=== PATIENT | female | born 1985 | race Hispanic/Latino ===

== ENCOUNTER 2023-09-07 02:20 | Emergency (ER) | payer OTHER, SELFPAY ==
[2023-09-07] MEDS ORDERED: METOCLOPRAMIDE 10 MG/2mL INJ ONE (03:16)
[2023-09-07] MEDS ORDERED: DIPHENHYDRAMINE 50 MG/ML VIAL ONE (03:16)
[2023-09-07] MEDS ORDERED: KETOROLAC 30 MG/ML INJ ONE (03:16)
[2023-09-07] MEDS ORDERED: NA CHLORIDE 0.9% 1,000 ML ONE (03:17)
[2023-09-07 03:40] LABS: Absolute Basophils 0.1 K/uL (0-0.5); Absolute Eosinophils 0.3 K/uL (0-0.5); Absolute Lymphocytes (CBC) 2.9 K/uL (0.7-4.9); Absolute Monocytes 0.5 K/uL (0.1-1.3); Absolute Neutrophil 6.2 K/uL (1.8-8.0); Basophils % 0.7 % (0-1.3); Eosinophils % 2.7 % (0-4.4); Hematocrit 36.8 % (36.0-45.0); Hemoglobin 12.5 g/dL (12.0-15.0); Lymphocytes % 29.2 % (15.3-44.8); MCH 29.8 pg (27.0-35.0); MCHC 33.9 g/dL (32.0-36.0); MCV 87.7 fL (80-100); MPV 9.3 fL (7.6-11.3); Monocytes % 5.1 % (3.3-12.3); Neutrophils % 62.3 % (41.7-73.7); Nucleated Red Blood Cells % 0.1 % (0-0); Platelets 213 thou/uL (152-406); Red Cell Distribution Width 12.8 % (12.1-15.2)
[2023-09-07 03:58] LABS: Anion Gap 3.5 mEq/L (5.0-15.0); Potassium 3.5 mEq/L (3.5-5.1)
--- NOTE | 2023-09-07 04:58 | EDPHYS ---
Physician Documentation [facility] Name: Samantha Silverio Age: 38 yrs Sex: Female : 1985 Arrival Date: 09/07/2023 Time: 02:20 Bed 19 Private MD: ED Physician Heber Arreaga HPI: 09/06 03:03 This 38 yrs old Female presents to ER via Ambulatory with complaints of sp4 Headache, Dizziness, Weakness. 04:58 38-year-old female presents with acute onset left-sided headache starting 1 hour prior sp4 to arrival. . Historical: - Allergies: 02:37 No Known Allergies; jb4 - PMHx: 02:37 Asthma; HYPOGLYCEMIA; jb4 - PSHx: 02:37 Cholecystectomy; jb4 - Immunization history:: Adult Immunizations up to date. - Infectious Disease History:: Denies. - Social history:: Smoking status: Patient denies any tobacco usage or history of. - Family history:: not pertinent. ROS: 04:58 Constitutional: Negative for fever, chills, and weight loss, positive for headache sp4 04:58 Constitutional: Positive for dizziness and weakness sp4 04:58 All other systems are negative, Exam: 04:43 Constitutional: This is a well developed, well nourished patient who is awake, alert, sp4 and in no acute distress. Head/Face: Normocephalic, atraumatic. Eyes: Pupils equal round and reactive to light, extra-ocular motions intact. Lids and lashes normal. Conjunctiva and sclera are not injected. Cornea within normal limits. Periorbital areas with no swelling, redness, or edema. ENT: Nares patent. No nasal discharge, no septal abnormalities noted. Tympanic membranes are normal and external auditory canals are clear. Oropharynx with no redness, swelling, or masses, exudates, or evidence of obstruction, uvula midline. Mucous membranes moist. Neck: Trachea midline, no thyromegaly or masses palpated, and no cervical lymphadenopathy. Supple, full range of motion without nuchal rigidity, or vertebral point tenderness. Chest/axilla: Normal chest wall appearance and motion. Nontender with no deformity. No lesions are appreciated. Cardiovascular: Regular rate and rhythm with a normal S1 and S2. No gallops, murmurs, or rubs. Normal PMI, no JVD. No pulse deficits. Respiratory: Lungs have equal breath sounds bilaterally, clear to auscultation and percussion. No rales, rhonchi or wheezes noted. No increased work of breathing, no retractions or nasal flaring. Abdomen/GI: Soft, with normal bowel sounds. No distension or tympany. No guarding or rebound. No evidence of tenderness throughout. Back: No spinal tenderness. No costovertebral tenderness. Skin: Warm, dry with normal turgor. Normal color with no rashes, no lesions, and no evidence of cellulitis. MS/ Extremity: Pulses equal, no cyanosis. Neurovascular intact. Full, normal range of motion. Neuro: Awake and alert, GCS 15, oriented to person, place, time, and situation. Cranial nerves II-XII grossly intact. Motor strength 5/5 in all extremities. Sensory grossly intact. Psych: Awake, alert, with orientation to person, place and time. Behavior, mood, and affect are within normal limits Vital Signs: 02:43 BP 139 / 88; Pulse 90; Resp 18; Temp 98.2(O); Pulse Ox 96% on R/A; Weight 131.54 kg; oe Height 5 ft. 4 in. ; Pain 8/10; 03:42 BP 134 / 73; Pulse 88; Resp 16 S; Pulse Ox 97% on R/A; ha1 04:30 BP 130 / 72; Pulse 85; Resp 16; Temp 97.8; Pulse Ox 99% on R/A; Pain 0/10; pf1 02:43 Body Mass Index 49.78 (131.54 kg, 162.56 cm) oe 02:43 Pain Scale: Adult oe 04:30 Pain Scale: Adult pf1 NIH Stroke Scale Scores: 04:43 NIHSS Score: 0 sp4 Peter Coma Score: 04:43 Eye Response: spontaneous(4). Motor Response: obeys commands(6). Verbal Response: sp4 oriented(5). Total: 15. MDM: 03:04 Patient medically screened. sp4 04:35 ED course: CLINICAL HISTORY: acute headache COMPARISON: None. TECHNIQUE: CT HEAD sp4 WITHOUT IV CONTRAST on 09/07/2023 3:04 AM CDT This exam was performed according to our departmental dose-optimization program, which includes automated exposure control, adjustment of the mA and/or kV according to patient size and/or use of iterative reconstruction technique. FINDINGS: There is no acute hemorrhage, mass effect or midline shift. Stewart-white differentiation is preserved. There is no hydrocephalus. There is no significant volume loss for age. The calvarium is intact. Orbits and globes are unremarkable. There is mild thickening of the left maxillary sinus. Mastoid air cells are clear. IMPRESSION: No acute intracranial findings.. 04:43 Differential diagnosis: cluster headache, cerebral vascular accident, migraine, sp4 neoplasm, vasomotor headache. Data reviewed: vital signs, nurses notes, lab test result(s), radiologic studies, CT scan. ED course: CT negative. Headache resolved, Blood sugar elevated - Patient stable for discharge home. Fioricet prescribed. . 09/06 03:04 Order name: Basic Metabolic Panel; Complete Time: 04:36 sp4 09/06 03:04 Order name: CBC with Diff; Complete Time: 04:36 sp4 09/06 03:04 Order name: Test, Serum; Complete Time: 04:36 sp4 09/06 03:04 Order name: CT Head Brain wo Cont sp4 09/06 03:04 Order name: IV Saline Lock; Complete Time: 03:45 sp4 09/06 03:04 Order name: Labs collected and sent; Complete Time: 03:45 sp4 Administered Medications: 03:20 Drug: diphenhydrAMINE IVP 25 mg IVP once Route: IVP; Site: right antecubital; ha1 04:00 Follow up: Response: No adverse reaction; Marked relief of symptoms ha1 03:20 Drug: NS 0.9% IV 1000 ml IV at 1 bolus Per protocol; 1000 mL bolus Route: IV; Rate: 1 ha1 bolus; Site: right antecubital; 04:30 Follow up: Response: No adverse reaction; Marked relief of symptoms; IV Status: pf1 Completed infusion; IV Intake: 1000ml 03:22 Drug: metoCLOPramide IVP 10 mg IVP once; over 1 to 2 minutes Route: IVP; Site: right ha1 antecubital; 04:00 Follow up: Response: No adverse reaction; Marked relief of symptoms; Pain is decreased ha1 03:24 Drug: Ketorolac IVP 30 mg IVP once Route: IVP; Site: right antecubital; ha1 04:00 Follow up: Response: No adverse reaction; Marked relief of symptoms ha1 Disposition Summary: 09/07/23 04:57 Discharge Ordered Notes: Location: Home sp4 Problem: new sp4 Symptoms: have improved sp4 Condition: Stable sp4 Diagnosis - Episodic cluster headache sp4 Followup: sp4 - With: Private Physician - When: 7 - 10 days - Reason: Recheck today's complaints Discharge Instructions: - Discharge Summary Sheet sp4 - Cluster Headache, [id number] sp4 Forms: - Patient Portal Instructions sp4 Prescriptions: - Fioricet 50-300-40 mg Oral capsule - take 1 capsule ORAL route every 8 hours PRN headache; 30 capsule; Refills: 0, sp4 Product Selection Permitted NIH Stroke Scale - NIH Stroke Score Date: 09/07/2023 Time: 04:43 Total Score = 0 10. Dysarthria (speech clarity - read or repeat words) - 0(Normal) 11. Extinction and Inattention (visual/tactile/auditory/spatial/personal) - 0(No abnormality) 1a. Level of Consciousness (LOC) - 0(Alert) 1b. Level of Consciousness (LOC) (Month \T\ Age) - 0(Both) 1c. LOC Commands (Open \T\ Closes Eyes/Band Scroll Saw Operator) - 0(Both) 2. Best Gaze (Lateral Gaze Paresis) - 0(Normal) 3. Visual Field Loss - 0(No visual loss) 4. Facial Palsy - 0(Normal) 5a. Left Arm: Motor (10-second hold) - 0(No drift) 5b. Right Arm: Motor (10-second hold) - 0(No drift) 6a. Left Leg: Motor (5-second hold - always test supine) - 0(No drift) 6b. Right Leg: Motor (5-second hold - always test supine) - 0(No drift) 7. Limb Ataxia (finger/nose \T\ heel/luz - test with eyes open) - 0(Absent) 8. Sensory Loss (pinprick arms/legs/face) - 0(Normal) 9. Best Language: Aphasia (description/naming/reading) - 0(No aphasia) Initials: sp4 Signatures: Dispatcher [employer] EDMS Nitin Patricio RN RN jb4 Celia Zaidi RN RN ha1 Heber Arreaga MD MD sp4 Alexandra Temple RN pf1 Corrections: (The following items were deleted from the chart) 03:05 03:05 BASIC METABOLIC PANEL+C.LAB.BRZ ordered. EDMS EDMS 03:05 03:05 CBC+H.LAB.BRZ ordered. EDMS EDMS 03:05 03:05 TEST, SERUM+SC.LAB.BRZ ordered. EDMS EDMS
--- NOTE | 2023-09-07 04:58 | ER ---
Nurse's Notes [facility] Name: Samantha Silverio Age: 38 yrs Sex: Female : 1985 Arrival Date: 09/07/2023 Time: 02:20 Bed 19 Private MD: Diagnosis: Episodic cluster headache Presentation: 09/06 02:35 Chief complaint: Patient states: About an hour ago I was taking a shower and got dizzy, jb4 developed a headache on the left side of my head, got shaky and nauseous. The shaking is gone, but I still have the headache and feel like the room is spinning. Coronavirus screen: At this time, the client does not indicate any symptoms associated with coronavirus-19. Ebola Screen: No symptoms or risks identified at this time. Initial Sepsis Screen: Does the patient meet any 2 criteria? No. Patient's initial sepsis screen is negative. Does the patient have a suspected source of infection? No. Patient's initial sepsis screen is negative. Risk Assessment: Do you want to hurt yourself or someone else? Patient reports no desire to harm self or others. Onset of symptoms was September 07, 2023. Transition of care: patient was not received from another setting of care. 02:35 Method Of Arrival: Ambulatory jb4 02:35 Acuity: EVA 3 jb4 Triage Assessment: 03:44 Headache History: Denies prior headaches. ha1 03:44 Pain: Also complains of nausea. pf1 Historical: - Allergies: 02:37 No Known Allergies; jb4 - PMHx: 02:37 Asthma; HYPOGLYCEMIA; jb4 - PSHx: 02:37 Cholecystectomy; jb4 - Immunization history:: Adult Immunizations up to date. - Infectious Disease History:: Denies. - Social history:: Smoking status: Patient denies any tobacco usage or history of. - Family history:: not pertinent. Screenin:43 [facility] ED Fall Risk Assessment (Adult) History of falling in the last 3 months, ha1 including since admission No falls in past 3 months (0 pts) Confusion or Disorientation No (0 pts) Intoxicated or Sedated No (0 pts) Impaired Gait No (0 pts) Mobility Assist Device Used No (0 pt) Altered Elimination No (0 pt) Score/Fall Risk Level 0 - 2 = Low Risk Oriented to surroundings, Maintained a safe environment, Educated pt \T\ family on fall prevention, incl call for assistance when getting out of bed, Hourly rounding (assess needs \T\ fall precautionary measures) done. Abuse screen: Denies threats or abuse. Denies injuries from another. Nutritional screening: No deficits noted. Tuberculosis screening: No symptoms or risk factors identified. Assessment: 02:29 General: Appears uncomfortable, Behavior is calm, cooperative. Pain: Complains of pain ha1 in headache Pain does not radiate. Pain currently is 8 out of 10 on a pain scale. Quality of pain is described as aching, Pain began suddenly. Neuro: Level of Consciousness is awake, alert, obeys commands, Oriented to person, place, time, situation. Neuro: Reports headache occipital area. Cardiovascular: Capillary refill < 3 seconds Patient's skin is warm and dry. Respiratory: Airway is patent Respiratory effort is even, unlabored, Respiratory pattern is regular, symmetrical. GI: No signs and/or symptoms were reported involving the gastrointestinal system. Abdomen is round obese. Derm: Skin is pink, warm \T\ dry. 02:29 Musculoskeletal: Circulation, motion, and sensation intact. ha1 03:30 Reassessment: Patient and/or family updated on plan of care and expected duration. Pain ha1 level reassessed. Patient is alert, oriented x 3, equal unlabored respirations, skin warm/dry/pink. 04:30 Reassessment: Patient and/or family updated on plan of care and expected duration. Pain ha1 level reassessed. Patient is alert, oriented x 3, equal unlabored respirations, skin warm/dry/pink. Patient states feeling better. Patient states symptoms have improved. Vital Signs: 02:43 BP 139 / 88; Pulse 90; Resp 18; Temp 98.2(O); Pulse Ox 96% on R/A; Weight 131.54 kg; oe Height 5 ft. 4 in. ; Pain 8/10; 03:42 BP 134 / 73; Pulse 88; Resp 16 S; Pulse Ox 97% on R/A; ha1 04:30 BP 130 / 72; Pulse 85; Resp 16; Temp 97.8; Pulse Ox 99% on R/A; Pain 0/10; pf1 02:43 Body Mass Index 49.78 (131.54 kg, 162.56 cm) oe 02:43 Pain Scale: Adult oe 04:30 Pain Scale: Adult pf1 Peter Coma Score: 04:43 Eye Response: spontaneous(4). Motor Response: obeys commands(6). Verbal Response: sp4 oriented(5). Total: 15. NIH Stroke Scale Scores: 04:43 NIHSS Score: 0 sp4 ED Course: 02:28 Patient arrived in ED. gm2 02:29 Patient has correct armband on for positive identification. Bed in low position. Call ha1 light in reach. Side rails up X 1. Adult w/ patient. 02:37 Triage completed. jb4 02:37 Arm band placed on right wrist. jb4 03:03 Heber Arreaga MD is Attending Physician. sp4 03:06 Celia Zaidi RN is Primary Nurse. ha1 03:46 Basic Metabolic Panel Sent. ha1 03:46 CBC with Diff Sent. ha1 03:46 Test, Serum Sent. ha1 04:00 CT Head Brain wo Cont In Process Unspecified. EDMS 05:10 Provided Education on: prescription and follow up. pf1 05:10 No provider procedures requiring assistance completed. IV discontinued, intact, pf1 bleeding controlled, No redness/swelling at site. Pressure dressing applied. Administered Medications: 03:20 Drug: diphenhydrAMINE IVP 25 mg IVP once Route: IVP; Site: right antecubital; ha1 04:00 Follow up: Response: No adverse reaction; Marked relief of symptoms ha1 03:20 Drug: NS 0.9% IV 1000 ml IV at 1 bolus Per protocol; 1000 mL bolus Route: IV; Rate: 1 ha1 bolus; Site: right antecubital; 04:30 Follow up: Response: No adverse reaction; Marked relief of symptoms; IV Status: pf1 Completed infusion; IV Intake: 1000ml 03:22 Drug: metoCLOPramide IVP 10 mg IVP once; over 1 to 2 minutes Route: IVP; Site: right ha1 antecubital; 04:00 Follow up: Response: No adverse reaction; Marked relief of symptoms; Pain is decreased ha1 03:24 Drug: Ketorolac IVP 30 mg IVP once Route: IVP; Site: right antecubital; ha1 04:00 Follow up: Response: No adverse reaction; Marked relief of symptoms ha1 Medication: 03:44 VIS not applicable for this client. ha1 Intake: 04:30 IV: 1000ml; Total: 1000ml. pf1 Outcome: 04:57 Discharge ordered by MD. sp4 05:10 Discharged to home ambulatory, pf1 05:10 Condition: improved 05:10 Discharge instructions given to patient, Instructed on discharge instructions, follow up and referral plans. Demonstrated understanding of instructions, follow-up care, medications, Prescriptions given X 1, 05:11 Patient left the ED. pf1 NIH Stroke Scale - NIH Stroke Score Date: 09/07/2023 Time: 04:43 Total Score = 0 10. Dysarthria (speech clarity - read or repeat words) - 0(Normal) 11. Extinction and Inattention (visual/tactile/auditory/spatial/personal) - 0(No abnormality) 1a. Level of Consciousness (LOC) - 0(Alert) 1b. Level of Consciousness (LOC) (Month \T\ Age) - 0(Both) 1c. LOC Commands (Open \T\ Closes Eyes/Thread Roller) - 0(Both) 2. Best Gaze (Lateral Gaze Paresis) - 0(Normal) 3. Visual Field Loss - 0(No visual loss) 4. Facial Palsy - 0(Normal) 5a. Left Arm: Motor (10-second hold) - 0(No drift) 5b. Right Arm: Motor (10-second hold) - 0(No drift) 6a. Left Leg: Motor (5-second hold - always test supine) - 0(No drift) 6b. Right Leg: Motor (5-second hold - always test supine) - 0(No drift) 7. Limb Ataxia (finger/nose \T\ heel/luz - test with eyes open) - 0(Absent) 8. Sensory Loss (pinprick arms/legs/face) - 0(Normal) 9. Best Language: Aphasia (description/naming/reading) - 0(No aphasia) Initials: sp4 Signatures: Dispatcher [employer] EDNitin Hairston, RN RN jb4 Lai Monroe Heidy RN RN ha1 Alexandra Temple RN RN pf1 Heber Arreaga MD MD sp4 Julianna Lion gm2 Corrections: (The following items were deleted from the chart) 04:36 03:30 Reassessment: Patient and/or family updated on plan of care and expected ha1 duration. Pain level reassessed. Patient is alert, oriented x 3, equal unlabored respirations, skin warm/dry/pink. ha1
[2023-09-07 05:44] VITALS: BP 130/72; TEMP 97.8; O2SAT 99
--- NOTE | 2023-09-07 14:07 | RAD REPORT ---
EXAM DESCRIPTION: CT - Head Brain Wo Cont - 09/07/2023 6:31 am CLINICAL HISTORY: Acute headache COMPARISON: None. TECHNIQUE: CT HEAD WITHOUT IV CONTRAST on 09/07/2023 3:04 AM CDT This exam was performed according to our departmental dose-optimization program, which includes autom ated exposure control, adjustment of the mA and/or kV according to patient size and/or use of iterati ve reconstruction technique. FINDINGS: There is no acute hemorrhage, mass effect or midline shift. Stewart-white differentiation is preserved. There is no hydrocephalus. There is no significant volume loss for age. The calvarium is intact. Orbits and globes are unremarkable. There is mild thickening of the left max illary sinus. Mastoid air cells are clear. IMPRESSION: No acute intracranial findings. Electronically signed by: Chilo Acosta MD 09/07/2023 04:27 AM CDT Due to temporary technical issues with the PACS/Fluency reporting system, reports are being signed by the in house radiologist without review as a courtesy to ensure prompt reporting. The interpreting r adiologist is fully responsible for the content of the report.
== END 2023-09-07 05:11 | disposition home or self-care (01) ==
LOC: ER 02:20
DX: G44.019 Episodic cluster headache, not intractable (principal)
CPT/HCPCS: 36415; 70450; 80048; 84703; 85025; 96361; 96374; 96375; 99284; J1200; J2765; J7030

== ENCOUNTER 2023-09-19 16:20 | Emergency (ER) | payer SELFPAY ==
[2023-09-19 17:07] LABS: Urine Bilirubin NEGATIVE (Negative); Urine Blood Negative (Negative); Urine Clarity Clear (Clear); Urine Color Colorless (Yellow); Urine Glucose NEGATIVE (Negative); Urine Ketones NEGATIVE (Negative); Urine Microscopic Reflex YN NO UMIC; Urine Nitrite NEGATIVE (Negative); Urine Protein NEGATIVE (Negative); Urine Urobilinogen Normal (Normal); Urine pH 5.5 (5.0-7.0)
--- NOTE | 2023-09-19 18:02 | ER ---
Nurse's Notes [facility] Name: Samantha Silverio Age: 38 yrs Sex: Female : 1985 Arrival Date: 09/19/2023 Time: 16:20 Bed IW1 Private MD: Diagnosis: Dysuria Presentation: 09/18 16:32 Chief complaint: Patient states: burning with urination and foul smelling urine today. aa5 Coronavirus screen: At this time, the client does not indicate any symptoms associated with coronavirus-19. Ebola Screen: Patient denies travel to an Ebola-affected area in the 21 days before illness onset. Initial Sepsis Screen: Does the patient meet any 2 criteria? No. Patient's initial sepsis screen is negative. Does the patient have a suspected source of infection? No. Patient's initial sepsis screen is negative. Risk Assessment: Do you want to hurt yourself or someone else? Patient reports no desire to harm self or others. Onset of symptoms was September 19, 2023. 16:32 Method Of Arrival: Ambulatory aa5 16:32 Acuity: EVA 4 aa5 Triage Assessment: 16:32 General: Appears comfortable, Behavior is calm, cooperative. Neuro: Level of aa5 Consciousness is awake, alert, obeys commands, Oriented to person, place, time, situation. Respiratory: Airway is patent Respiratory effort is even, unlabored, Respiratory pattern is regular, symmetrical. : Reports burning with urination, foul smelling urine. Derm: Skin is pink, warm \T\ dry. Historical: - Allergies: 16:33 No Known Allergies; aa5 - PMHx: 16:33 Asthma; as a child; HYPOGLYCEMIA; aa5 - PSHx: 16:33 Cholecystectomy; aa5 - Immunization history:: Adult Immunizations unknown. - Infectious Disease History:: Denies. - Social history:: Smoking status: Patient denies any tobacco usage or history of. Assessment: 18:06 Reassessment: Patient is alert, oriented x 3, equal unlabored respirations, skin aa5 warm/dry/pink. Vital Signs: 16:32 BP 136 / 71; Pulse 98; Resp 18 S; Temp 98(TE); Pulse Ox 99% on R/A; Weight 131.54 kg aa5 (R); Height 5 ft. 4 in. (R); 16:32 Body Mass Index 49.78 (131.54 kg, 162.56 cm) aa5 ED Course: 16:24 Patient arrived in ED. mg5 16:32 Arm band placed on. aa5 16:33 Triage completed. aa5 16:49 Test, Urine Sent. bc6 16:49 Urinalysis w/ reflexes Sent. bc6 16:50 Urine collected: clean catch specimen. bc6 16:53 Cherri Keita FNP-C is [facility]. kb 16:53 Virgilio Pack MD is Attending Physician. kb 18:06 No provider procedures requiring assistance completed. Patient did not have IV access aa5 during this emergency room visit. Administered Medications: No medications were administered Outcome: 18:02 Discharge ordered by . kb 18:06 Discharged to home ambulatory, aa5 18:06 Condition: stable 18:06 Discharge instructions given to patient, Instructed on discharge instructions, follow up and referral plans. medication usage, Demonstrated understanding of instructions, follow-up care, medications, Prescriptions given X 1, 18:07 Patient left the ED. aa5 Signatures: Cherri Keita FNP-C FNP-Heather Levy, RN RN aa5 Bernice Hutchins bc6 Lindsay Guillen mg5 Corrections: (The following items were deleted from the chart) 16:34 16:32 Acuity: EVA 3 aa5 aa5
--- NOTE | 2023-09-19 18:02 | EDPHYS ---
Physician Documentation [facility] Name: Samantha Silverio Age: 38 yrs Sex: Female : 1985 Arrival Date: 09/19/2023 Time: 16:20 Bed IW1 Private MD: ED Physician Virgilio Pack HPI: 09/18 18:06 This 38 yrs old Female presents to ER via Ambulatory with complaints of kb Urinary Problem. 18:06 Pt is a 38 year old female who presents for burning with urination and foul smelling kb urine that started today. Denies abd pain, n/v/d, fever. . Historical: - Allergies: 16:33 No Known Allergies; aa5 - PMHx: 16:33 Asthma; as a child; HYPOGLYCEMIA; aa5 - PSHx: 16:33 Cholecystectomy; aa5 - Immunization history:: Adult Immunizations unknown. - Infectious Disease History:: Denies. - Social history:: Smoking status: Patient denies any tobacco usage or history of. ROS: 18:06 Constitutional: As per HPI kb Exam: 18:06 Constitutional: This is a well developed, well nourished patient who is awake, alert, kb and in no acute distress. Head/Face: Normocephalic, atraumatic. ENT: Moist Mucous membranes Cardiovascular: Regular rate Respiratory: Respirations even and unlabored. No increased work of breathing. Talking in full sentences Abdomen/GI: Soft, non-tender. No distention Back: No spinal tenderness. No costovertebral tenderness. Full range of motion. Skin: Warm, dry with normal turgor. Normal color. MS/ Extremity: Pulses equal, no cyanosis. Neurovascular intact. Full, normal range of motion. Neuro: Awake and alert, GCS 15, oriented to person, place, time, and situation. Moves all extremities. Normal gait. Vital Signs: 16:32 BP 136 / 71; Pulse 98; Resp 18 S; Temp 98(TE); Pulse Ox 99% on R/A; Weight 131.54 kg aa5 (R); Height 5 ft. 4 in. (R); 16:32 Body Mass Index 49.78 (131.54 kg, 162.56 cm) aa5 MDM: 16:53 Patient medically screened. kb 18:09 Differential diagnosis: UTI, kidney stone, pyelnephritis. Data reviewed: vital signs, kb nurses notes. Test considered but Not performed: CT: ct considered, pt is nontoxic in appearance, afebrile, no CVA or abd tenderness. Counseling: I had a detailed discussion with the patient and/or guardian regarding the historical points, exam findings, and any diagnostic results supporting the discharge/admit diagnosis, lab results, the need for outpatient follow up, a family practitioner, to return to the emergency department if symptoms worsen or persist or if there are any questions or concerns that arise at home. 09/18 16:36 Order name: Urinalysis w/ reflexes; Complete Time: 17:09 aa5 09/18 16:36 Order name: Test, Urine; Complete Time: 17: aa5 Administered Medications: No medications were administered Disposition Summary: 09/19/23 18:02 Discharge Ordered Notes: Location: Home kb Condition: Stable kb Diagnosis - Dysuria kb Followup: kb - With: Emergency Department - When: As needed - Reason: Worsening of condition Followup: kb - With: Private Physician - When: 2 - 3 days - Reason: Recheck today's complaints, Continuance of care, Re-evaluation by your physician Discharge Instructions: - Discharge Summary Sheet kb - Dysuria kb Forms: - Medication Reconciliation Form kb - Antibiotic Education kb - Prescription Opioid Use kb - Patient Portal Instructions kb - Leadership Thank You Letter kb Prescriptions: - Pyridium 200 mg Oral Tablet - take 1 tablet ORAL route every 8 hours for 3 days; 9 tablet; Refills: 0, kb Product Selection Permitted Signatures: Dispatcher [employer] Cherri Gupta, JUSTYNA-Rhonda JANSEN-Heather Levy, RN RN aa5
[2023-09-19 18:10] VITALS: BP 136/71; TEMP 98; O2SAT 99
== END 2023-09-19 18:07 | disposition home or self-care (01) ==
LOC: ER 16:20
DX: R30.0 Dysuria (principal)
CPT/HCPCS: 81003; 81025; 99283